=== PATIENT | male | born 1985 | race Native Hawaiian/Other Pacific Islander ===

== ENCOUNTER 2016-10-17 11:11 | Emergency (ER) | payer BC, OTHER ==
[~2016-10-17] VITALS: Ht 167.6 cm; Wt 68.0 kg
[~2016-10-17 11:11] MED LIST: ONDN4T PO
[2016-10-17] MEDS ORDERED: AMOX500C2 PO (12:36)
[2016-10-17] MEDS ORDERED: HYDR30CR71 RC (13:03)
[2016-10-17] MEDS ORDERED: DOCU-143 PO (13:03)
--- NOTE | 2016-10-17 13:03 | ED Integumentary General ---
General Chief Complaint: Skin/Wound Problems Stated Complaint: POSS RECTAL ABSCESS Nursing Triage Note: STATES HAS LUMP ON RECTUM. STATES BEEN GOING ON FOR YEARS. STATES THAT HE JUST WANTS TO GET IT LOOKED AT TODAY. PT. ALSO STATES HE WAS TOLD HE HAD MUMPS BUT IS OK NOW. GOT RESULTS BACK. MUMPS DIAGNOSED LAST W[facility] FROM [facility]. Source: patient Exam Limitations: no limitations History of Present Illness Time seen by provider: 12:56 Initial Comments To ER for complaints of a painful lump on the rectum since yesterday. This is been intermittent coming and going over the course of the past several years. He has never had this evaluated. No fevers or chills. Timing/Duration: just prior to arrival, other Severity: mild, moderate Associated Symptoms: denies symptoms (gets acutely: Acute) Allergies and Home Medications Allergies Coded Allergies: No Known Drug Allergies (Unverified , 12/18/12) Home Medications Amoxicillin 500 Mg Capsule 500 MG PO TID (Reported) Ondansetron Hcl 4 Mg Tab #10 4 MG PO Q4H Prescribed by: ELIOT LEO on 12/18/12 1436 Constitutional: see HPI EENTM: see HPI Respiratory: no symptoms reported Cardiovascular: no symptoms reported Genitourinary: no symptoms reported Musculoskeletal: no symptoms reported Skin: no symptoms reported Psychiatric/Neurological: No Symptoms Reported Endocrine: No Symptoms Reported Hematologic/Lymphatic: No Symptoms Reported Past Bsxgrqx-Myubaa-Glrqsm Hx Patient Social History Alcohol Use: Past History Recreational Drug Use: Yes Drug of Choice: MARIJUANA- EVERY DAY Smoking Status: Current Everyday Smoker Recent Foreign Travel: No Contact w/Someone Who Travel: No Recent Infectious Disease Expo: No Recent Hopitalizations: No Seasonal Allergies Seasonal Allergies: No Surgeries HX Surgeries: No Respiratory Hx Respiratory Disorders: No Cardiovascular Hx Cardiac Disorders: No Neurological Hx Neurological Disorders: No Reproductive System Hx Reproductive Disorders: No Genitourinary Hx Genitourinary Disorders: No Gastrointestinal Hx Gastrointestinal Disorders: No Musculoskeletal Hx Musculoskeletal Disorders: No Endocrine Hx Endocrine Disorders: No HEENT HX ENT Disorders: No Cancer Hx Cancer: No Psychosocial Hx Psychiatric Problems: No Integumentary HX Skin/Integumentary Disorder: No Blood Transfusions Hx Blood Disorders: No Family Medical History Significant Family History: No Pertinent Family Hx Physical Exam Vital Signs Vital Sign - Last 12Hours 10/17/16 12:25 Temp 98.5 Pulse 68 Resp 18 B/P 114/67 Pulse Ox 98 O2 Delivery Room Air Capillary Refill : Less Than 3 Seconds General Appearance: WD/WN no apparent distress HEENT: PERRL/EOMI normal ENT inspection Neck: non-tender full range of motion Respiratory: no respiratory distress no accessory muscle use Extremities: normal range of motion non-tender Neurologic/Psychiatric: alert normal mood/affect Skin: normal color warm/dry Comments There is a very small less than 1 cm thrombosed external hemorrhoid that does not look terribly engorged. Because of that I don't think that excision here would be helpful Progress/Results/Core Measures Results/Orders Vital Signs/I&O Vital Sign - Last 12Hours 10/17/16 12:25 Temp 98.5 Pulse 68 Resp 18 B/P 114/67 Pulse Ox 98 O2 Delivery Room Air Blood Pressure Mean: 83 Departure Impression Impression: Primary Impression: Thrombosed external hemorrhoid Disposition: HOME, SELF-CARE Condition: Stable Departure-Patient Inst. Decision time for Depature: 13:01 Referrals: NO,LOCAL PHYSICIAN (PCP/Family) Primary Care Physician Patient Instructions: Hemorrhoids Add. Discharge Instructions: 1. Follow-up with one of the surgeons listed for further evaluation 2. Return to ER for any worsening 3. High fiber diet. This would be gr, fruits and vegetables. Drink at least 6 glasses of water per day 4. Take the stool softener as directed All discharge instructions reviewed with patient and/or family. Voiced understanding. Scripts Hydrocortisone (Anusol-Hc)30 Gm Cream..g.30 Gm RC BID 7 Days Prov:SONG DOLL APRN 10/17/16 Docusate Sodium (Colace)100 Mg Ctadlsx207 Mg PO BID #14 CAP Prov:SONG DOLL APRN 10/17/16 SONG DOLL APRN Oct 17, 2016 13:03
[2016-10-17 13:09] VITALS: BP 114/67
--- OUTSIDE RECORDS SUMMARY | 2016-10-17 13:32 | XMS REPORT | Continuity of Care Document ---
Author Author [facility] Organization [facility] Address Unknown Phone Unavailable Care Team Providers Care Movie Producer Name Role Phone NO, LOCAL PHYSICIAN PCP Unavailable Insurance Providers Payer Name Policy Number Subscriber Name Relationship Unknown Advance Directives Directive Response Recorded Date/Time Advance Directives No 10/17/16 12:32pm Health Care Power of Dragger No 10/17/16 12:32pm Organ Donor No 10/17/16 12:32pm Resuscitation Status Full Code 10/17/16 12:32pm Chief Complaint and Reason for Visit Chief Complaint Skin/Wound Problems Reason for Visit [id number] Problems Active Problems Medical Problem Onset Date Status Thrombosed external hemorrhoid Unknown Acute Medications Current Home Medications Medication Dose Units Route Directions Days/Qty Instructions Start Date Ondansetron Hcl 4 Mg 4 Mg Oral Every 4HRS 10 12/18/12 Amoxicillin 500 Mg 500 Mg Oral Three Times A Day for Tooth 10/17/16 Docusate Sodium 100 Mg 100 Mg Oral Twice A Day 14 10/17/16 Hydrocortisone 30 Gm 30 Gm Rectal Twice A Day 7 Days 10/17/16 Social History Social History Problem Response Recorded Date/Time Alcohol Use Occasionally Uses 12/18/2012 1:33pm Recreational Drug Use No 12/18/2012 1:33pm Recent Foreign Travel No 10/17/2016 12:25pm Recent Infectious Disease Exposure No 10/17/2016 12:25pm Smoking Status Current Everyday Smoker 10/17/2016 12:32pm Drug of Choice MARIJUANA- EVERY DAY 10/17/2016 12:32pm Recent Hopitalizations No 10/17/2016 12:32pm Query Response Start Date Stop Date Smoking Status Current Everyday Smoker Hospital Discharge Instructions No hospital discharge instructions. Plan of Care Discharge Date 10/17/16 1:09pm Disposition 01 HOME, SELF-CARE Condition at Discharge Stable Instructions/Education Provided Hemorrhoids Prescriptions See Medication Section Referrals NO,LOCAL PHYSICIAN - Primary Care Physician Additional Instructions/Education 1. Follow-up with one of the surgeons listed for further evaluation 2. Return to ER for any worsening 3. High fiber diet. This would be gr, fruits and vegetables. Drink at least 6 glasses of water per day 4. Take the stool softener as directed All discharge instructions reviewed with patient and/or family. Voiced understanding. Functional Status No functional status results. Allergies, Adverse Reactions, Alerts No known allergies. Immunizations No immunization records. Vital Signs Acute Vital Signs Vital Response Date/Time Temperature (Fahrenheit) 98.5 degrees F (97.6 - 99.5) 10/17/2016 12:25pm Temperature (Calculated Celsius) 36.18105 degrees C (36.4 - 37.5) 10/17/2016 12:25pm Temperature Source Temporal 10/17/2016 12:25pm Pulse Rate (adult) 68 bpm (60 - 90) 10/17/2016 12:25pm Respiratory Rate 18 bpm (12 - 24) 10/17/2016 12:25pm O2 Sat by Pulse Oximetry 98 % (88 - 100) 10/17/2016 12:25pm Blood Pressure 114/67 mm Hg 10/17/2016 12:25pm Blood Pressure Mean 83 mm Hg 10/17/2016 12:25pm Pain Numeric Pain Scale 2 10/17/2016 12:25pm Height (Feet) 5 feet 10/17/2016 12:25pm Height (Inches) 6 inches 10/17/2016 12:25pm Height (Calculated Centimeters) 167.045518 cm 10/17/2016 12:25pm Weight (Pounds) 150 pounds 10/17/2016 12:25pm Weight (Calculated Grams) 63500.856 gm 10/17/2016 12:25pm Weight (Calculated Kilograms) 68.987513 kilograms 10/17/2016 12:25pm Calculated BMI 24.21 10/17/2016 12:25pm Capillary Refill Capillary Refill Less Than 3 Seconds 10/17/2016 12:25pm Results No known relevant diagnostic tests, laboratory data and/or discharge summary. Procedures No known history of procedures. Encounters Encounter Location Arrival/Admit Date Discharge/Depart Date Attending Provider Departed Emergency Room [facility] 10/17/16 11:16am 1:09pm SONG DOLL APRN Recent Diagnosis
== END 2016-10-17 13:09 | disposition home or self-care (01) ==
LOC: EDUNIT# 11:11 → ER 11:16
DX: K64.5 Perianal venous thrombosis (principal); F17.210 Nicotine dependence, cigarettes, uncomplicated
CPT/HCPCS: 99281